=== PATIENT | female | born 2005 | race African-American/Black ===

== ENCOUNTER 2024-11-25 16:50 | Emergency (ER) | payer MEDICAID, OTHER ==
[~2024-11-25] VITALS: Ht 162.6 cm; Wt 75.8 kg
[2024-11-25 17:30] VITALS: BP 147/79; PULSE 78; RESP 16; TEMP 98.7; O2SAT 97
[2024-11-25] MEDS ORDERED: NEOM0.1S10 RIGHTEYE (17:50)
[2024-11-25] MEDS ORDERED: NAPR-957 PO (17:50)
[2024-11-25] MEDS ORDERED: NEOM0.1S10 LEFTEYE (17:50)
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
== END 2024-11-25 18:06 | disposition home or self-care (01) ==
LOC: ER 16:56
DX: S80.02XA Contusion of left knee, initial encounter (principal); H10.9 Unspecified conjunctivitis; F17.210 Nicotine dependence, cigarettes, uncomplicated; J45.909 Unspecified asthma, uncomplicated; Z98.890 Other specified postprocedural states; Z79.899 Other long term (current) drug therapy; Y08.89XA Assault by other specified means, initial encounter; Y93.89 Activity, other specified; Y92.89 Other specified places as the place of occurrence of the external cause; Y99.8 Other external cause status